=== PATIENT | male | born 1995 | race Two or more races ===

== ENCOUNTER 2018-07-06 07:34 | Emergency (ER) | payer SELFPAY ==
--- NOTE | 2018-07-06 07:38 | EDM.PDOC ---
ED HPI GENERAL MEDICAL PROBLEM - General Stated Complaint: COUGH, CHEST PAIN, HEADACHE, FEVER Time Seen by Provider: 07/06/18 07:37 Source of Information: Reports: Patient - History of Present Illness INITIAL COMMENTS - FREE TEXT/NARRATIVE: HISTORY AND PHYSICAL: History of present illness: [Patient presents with 2 days of substernal chest pain 5 out of 10 nonradiating also complains of headache no fever nausea vomiting chills sweats no shortness of breath or diaphoresis] Review of systems: As per history of present illness and below otherwise all systems reviewed and negative. Past medical history: As per history of present illness and as reviewed below otherwise noncontributory. Surgical history: As per history of present illness and as reviewed below otherwise noncontributory. Social history: No reported history of drug or alcohol abuse. Family history: As per history of present illness and as reviewed below otherwise noncontributory. Physical exam: HEENT: Atraumatic, normocephalic, pupils reactive, negative for conjunctival pallor or scleral icterus, mucous membranes moist, throat clear, neck supple, nontender, trachea midline. Lungs: Clear to auscultation, breath sounds equal bilaterally, chest nontender. Heart: S1S2, regular, negative for clicks, rubs, or JVD. Abdomen: Soft, nondistended, nontender. Negative for masses or hepatosplenomegaly. Negative for costovertebral tenderness. Pelvis: Stable nontender. Genitourinary: Deferred. Rectal: Deferred. Extremities: Atraumatic, negative for cords or calf pain. Neurovascular unremarkable. Neuro: Awake, alert, oriented. Cranial nerves II through XII unremarkable. Cerebellum unremarkable. Motor and sensory unremarkable throughout. Exam nonfocal. Diagnostics: [Influenza EKG Chest 1 view ]CBC CMP troponin lipase UA Therapeutics: [Normal saline Aspirin 324 mg chewable] Proton X 80 mg IV GI cocktail Lopressor 5 mg IV Nitroglycerin 0.4 sublingual 3 pain resolved with the sublingual nitroglycerin after third dose Impression: Acute coronary syndrome elevated troponin ] Definitive disposition and diagnosis as appropriate pending reevaluation and review of above. Mid-Sternal Chest Pain Score (Numeric/FACES): 5 - Related Data Allergies Allergy/AdvReac Type Severity Reaction Status Date / Time No Known Allergies Allergy Verified 07/06/18 07:48 Home Meds: Home Meds . [No Known Home Meds] 07/06/18 [History] ED ROS GENERAL - Review of Systems Review Of Systems: See Below ED EXAM, GENERAL - Physical Exam Exam: See Below Course - Vital Signs Last Recorded V/S: Last Vital Signs Temp 97.6 F 07/06/18 07:45 Pulse 97 07/06/18 09:49 Resp 13 07/06/18 09:35 BP 109/69 07/06/18 09:49 Pulse Ox 97 07/06/18 09:35 - Orders/Labs/Meds Orders: Active Orders 24 hr Category Date Time Status EKG Documentation Completion [RC] STAT Care 07/06/18 07:37 Active CKMB [CHEM] Stat Lab 07/06/18 08:00 Received CPK [CREATINE KINASE,CK] [CHEM] Stat Lab 07/06/18 08:00 Received INR,PT,PROTHROMBIN TIME [COAG] Stat Lab 07/06/18 08:00 Received Nitroglycerin [Nitrostat] Med 07/06/18 09:39 Active 0.4 mg SL Q5M PRN Medication Orders Nitroglycerin (Nitrostat) 0.4 mg SL Q5M PRN PRN Reason: Chest Pain Last Admin: 07/06/18 09:43 Dose: 0.4 mg Admin: 07/06/18 09:38 Dose: 0.4 mg Labs: Laboratory Tests 07/06/18 07/06/18 Range/Units 08:00 08:00 WBC 8.56 (4.0-11.0) K/uL RBC 5.32 (4.50-5.90) M/uL Hgb 15.8 (13.0-17.0) g/dL Hct 45.6 (38.0-50.0) % MCV 85.7 (80.0-98.0) fL MCH 29.7 (27.0-32.0) pg MCHC 34.6 (31.0-37.0) g/dL RDW Std Deviation 39.1 (28.0-62.0) fl RDW Coeff of Manuelito 13 (11.0-15.0) % Plt Count 161 (150-400) K/uL MPV 10.90 (7.40-12.00) fL Neut % (Auto) 69.1 (48.0-80.0) % Lymph % (Auto) 15.7 L (16.0-40.0) % Henderson % (Auto) 14.7 (0.0-15.0) % Eos % (Auto) 0.4 (0.0-7.0) % Baso % (Auto) 0.1 (0.0-1.5) % Neut # (Auto) 5.9 H (1.4-5.7) K/uL Lymph # (Auto) 1.3 (0.6-2.4) K/uL Henderson # (Auto) 1.3 H (0.0-0.8) K/uL Eos # (Auto) 0.0 (0.0-0.7) K/uL Baso # (Auto) 0.0 (0.0-0.1) K/uL Nucleated RBC % 0.0 /100WBC Nucleated RBCs # 0 K/uL Sodium 137 (136-148) mmol/L Potassium 3.2 L (3.5-5.1) mmol/L Chloride 101 (98-107) mmol/L Carbon Dioxide 27.3 (21.0-32.0) mmol/L BUN 14 (7.0-18.0) mg/dL Creatinine 0.9 (0.8-1.3) mg/dL Est Cr Clr Drug Dosing 117.16 mL/min Estimated GFR (MDRD) > 60.0 ml/min Glucose 121 H (74-106) mg/dL Calcium 9.1 (8.5-10.1) mg/dL Total Bilirubin 0.9 (0.2-1.0) mg/dL AST 62 H (15-37) IU/L ALT 32 (14-63) IU/L Alkaline Phosphatase 71 (46-116) U/L Troponin I 21.440 H* (0.000-0.056) ng/mL Total Protein 7.8 (6.4-8.2) g/dL Albumin 3.8 (3.4-5.0) g/dL Globulin 4.0 (2.6-4.0) g/dL Albumin/Globulin Ratio 0.9 (0.9-1.6) Lipase 100 (73-393) U/L Meds: Medications Generic Name Dose Route Start Last Admin Trade Name Freq PRN Reason Stop Dose Admin Nitroglycerin 0.4 mg 07/06/18 09:39 07/06/18 09:43 Nitrostat SL 0.4 mg Q5M PRN Administration Chest Pain Discontinued Medications Generic Name Dose Route Start Last Admin Trade Name Que PRN Reason Stop Dose Admin Aspirin 324 mg 07/06/18 07:51 07/06/18 08:04 Aspirin PO 07/06/18 07:52 324 mg ONETIME ONE Administration Al Hydroxide/Mg Hydroxide 15 0 ml 07/06/18 08:29 07/06/18 08:53 ml/ Metoclopramide HCl 5 mg/ PO 07/06/18 08:30 1 each Lidocaine HCl 5 ml ONETIME ONE Administration Enoxaparin Sodium 100 mg 07/06/18 09:31 07/06/18 09:37 Lovenox SUBCUT 07/06/18 09:32 100 mg ONETIME ONE Administration Heparin Sodium (Porcine) 4,000 units 07/06/18 09:49 Heparin Sodium IVPUSH 07/06/18 09:50 .BOLUS ONE Sodium Chloride 1,000 mls @ 999 mls/hr 07/06/18 07:51 07/06/18 08:04 Normal Saline IV 07/06/18 08:51 999 mls/hr STAT ONE Administration Metoprolol Tartrate 5 mg 07/06/18 09:41 07/06/18 09:49 Lopressor IVPUSH 07/06/18 09:42 5 mg NOW STA Administration Nitroglycerin Confirm 07/06/18 09:35 07/06/18 09:46 Nitrostat Administered 07/06/18 09:36 Not Given Dose 0.4 mg .ROUTE .STK-MED ONE Pantoprazole Sodium 80 mg 07/06/18 08:29 07/06/18 08:54 Protonix Iv IVPUSH 07/06/18 08:30 80 mg .BOLUS ONE Administration Departure - Departure Time of Disposition: 09:52 Disposition: DC/Tfer to Acute Hospital 02 Condition: Fair Clinical Impression: Acute coronary syndrome, Elevated troponin - Discharge Information Referrals: PCP,None [Primary Care Provider] - - My Orders Last 24 Hours: My Active Orders 07/06/18 07:37 EKG Documentation Completion [RC] STAT 07/06/18 08:00 CKMB [CHEM] Stat CPK [CREATINE KINASE,CK] [CHEM] Stat INR,PT,PROTHROMBIN TIME [COAG] Stat 07/06/18 09:39 Nitroglycerin [Nitrostat] 0.4 mg SL Q5M PRN - Assessment/Plan Last 24 Hours: My Active Orders 07/06/18 07:37 EKG Documentation Completion [RC] STAT 07/06/18 08:00 CKMB [CHEM] Stat CPK [CREATINE KINASE,CK] [CHEM] Stat INR,PT,PROTHROMBIN TIME [COAG] Stat 07/06/18 09:39 Nitroglycerin [Nitrostat] 0.4 mg SL Q5M PRN
[2018-07-06] MEDS ORDERED: Aspirin 81 MG Tab.Chew PO ONE (07:51)
[2018-07-06] MEDS ORDERED: Sodium Chloride 0.9% 1,000 ML IV ONE ×2 (07:51→09:53)
[2018-07-06] MEDS ORDERED: Alum Hydrox/Mag Hydrox/Simeth 15 ML, Metoclopramide 5 MG, Lidocaine 2% 5 ML PO ONE ×3 (08:29)
[2018-07-06] MEDS ORDERED: Pantoprazole 40 MG Vial IVPUSH ONE (08:29)
--- NOTE | 2018-07-06 08:46 | CR ---
EXAMINATION: Portable chest radiograph. HISTORY: Shortness of breath. FINDINGS: The trachea is midline. The cardiomediastinal silhouette is within normal limits. No pulmonary infiltrates, effusions or pneumothorax. Osseous structures appear unremarkable. IMPRESSION: No acute cardiopulmonary process.
[2018-07-06 08:52] LABS: CHLORIDE,CL 101 mmol/L (98-107); SODIUM,NA 137 mmol/L (136-148)
[2018-07-06] MEDS ORDERED: Enoxaparin 100 MG/1 ML Syringe SUBCUT ONE (09:31)
[2018-07-06] MEDS ORDERED: Nitroglycerin 0.4 MG Tab.SL ONE (09:35)
[2018-07-06] MEDS: Nitroglycerin 0.4 MG Tab.SL SL PRN ×3 (09:38→09:48)
[2018-07-06] MEDS ORDERED: Metoprolol Tartrate 5 MG/5 ML SDV IVPUSH STA (09:41)
[2018-07-06] MEDS ORDERED: Heparin Sodium 5,000 Units/ML Vial IVPUSH ONE (09:49)
[2018-07-06] MEDS ORDERED: Heparin Sod,Pork In 0.45% Nacl 25,000 UNIT/500 ML IV.SOLN IV ONE (09:52)
[2018-07-06] MEDS ORDERED: Heparin Sod,Pork In 0.45% Nacl 25,000 UNIT/500 ML IV.SOLN IV SCH (10:00)
== END 2018-07-06 10:30 ==
LOC: MW.ED 07:34
DX: I24.9 Acute ischemic heart disease, unspecified (principal); R79.89 Other specified abnormal findings of blood chemistry
CPT/HCPCS: 36415; 71045; 80053; 82550; 82553; 83690; 84484; 85025; 85610; 87804; 93005; 96361; 96365; 96375; 96376; 99285; A9270; C9113; J1644; J1650; J3490; J7040

== ENCOUNTER 2019-01-11 10:55 | Emergency (ER) | payer BC, OTHER ==
[2019-01-11] MEDS ORDERED: Diphtheria/Tetanus Toxoids,Adult (Td) 0.5 ML Syringe IM ONE (11:07)
[2019-01-11] MEDS ORDERED: ceFAZolin 1 GM in Premix Bag 1 BAG IV ONE (11:11)
[2019-01-11] MEDS ORDERED: Diphtheria,Pertussis(Acell),Tetanus Vaccine 0.5 ML Syringe IM ONE (11:13)
[2019-01-11] MEDS ORDERED: Ketorolac 60 MG/2 ML SDV IM ONE (11:15)
--- NOTE | 2019-01-11 11:19 | EDM.PDOC ---
ED HPI GENERAL MEDICAL PROBLEM - General Chief Complaint: Laceration Stated Complaint: LACERATION ON HAND Time Seen by Provider: 01/11/19 11:13 - History of Present Illness INITIAL COMMENTS - FREE TEXT/NARRATIVE: HISTORY AND PHYSICAL: History of present illness: []Patient is a 23-year-old male presenting today with multiple lacerations to left nondominant hand; patient was at work and had 2 metal plates compressing the left hand with pressure. Mentions hearing a "crunch" sound; believes he broke something. Denies using any [id number] medications prior to arrival to the ED. Patient rates the pain as 8 out of 10. Patient denies fever, chills, body aches come radiation of pain Review of systems: As per history of present illness and below otherwise all systems reviewed and negative. Past medical history: Previous history of "[place]" requiring transfer to [facility] Surgical history: As per history of present illness and as reviewed below otherwise noncontributory. Social history: No reported history of drug or alcohol abuse. Family history: As per history of present illness and as reviewed below otherwise noncontributory. Physical exam: HEENT: Atraumatic, normocephalic, pupils reactive, negative for conjunctival pallor or scleral icterus, mucous membranes moist, throat clear, neck supple, nontender, trachea midline. Lungs: Clear to auscultation, breath sounds equal bilaterally, chest nontender. Heart: S1S2, regular, negative for clicks, rubs, or JVD. Abdomen: Soft, nondistended, nontender. Negative for masses or hepatosplenomegaly. Negative for costovertebral tenderness. Pelvis: Stable nontender. Genitourinary: Deferred. Rectal: Deferred. Extremities: multiple lacerations of left non-dominant hand: Large curvilinear (L-shaped) laceration w/ exposed adipose tissue over left palm ; extending from base of 4th digit to lateral aspect of hand : 7 cm in length Laceration over palmar surface of left 3rd digit ; horizontal distribution at lateral aspect near pip joint : 2.5 cm Laceration over 4th digit : distal to PIP at 30 deg angle; 4cm laceration at 5th digit : 5 cm ; similar angle of 4th digit laceration. Sensation and ROM intact. pt. can use thumb to tough other digits , mild discomfort w/ making a fist but can still maintain ROM Left wrist: full ROM, sensation intact. Capillary refill of digits intact before; after sutures placed. Range of motion intact. Sensation intact. Neuro: Awake, alert, oriented. Cranial nerves II through XII unremarkable. Motor and sensory unremarkable throughout. Exam nonfocal. Diagnostics: []Left hand x-ray : no acute fx/dislocation appreciated Therapeutics: []Tordol 60 mg IV Impression: []Left hand lacerations multiple Left hand contusion Plan: []3-0 sutures placed in palm: x11. Margins approximated. 5 cc Lidocaine 1% used at margins. 4-0 sutures placed digits...6 placed in 5th digit..6 placed in 4th digit ...3 placed in 3rd digiti. repeat neuro-vascular exam intact. sensation intact 500 cc NS irrgation performed w/ betadyne applied prior to suture placement pt. agreed to procedure; risks and benefits explained. Definitive disposition and diagnosis as appropriate pending reevaluation and review of above. left hand Pain Score (Numeric/FACES): 8 - Related Data Allergies Allergy/AdvReac Type Severity Reaction Status Date / Time No Known Allergies Allergy Verified 01/11/19 10:59 Home Meds: Home Meds Cephalexin [Keflex] 500 mg PO BID 5 Days #10 capsule 01/11/19 [Rx] Past Medical History - Past Health History Medical/Surgical History: Denies Medical/Surgical History HEENT History: Reports: None Cardiovascular History: Reports: [place] Respiratory History: Reports: None Gastrointestinal History: Reports: None Genitourinary History: Reports: None Musculoskeletal History: Reports: None Neurological History: Reports: None Psychiatric History: Reports: None Endocrine/Metabolic History: Reports: None Hematologic History: Reports: None Immunologic History: Reports: None Oncologic (Cancer) History: Reports: None Dermatologic History: Reports: None - Past Surgical History Head Surgeries/Procedures: Reports: None HEENT Surgical History: Reports: None Cardiovascular Surgical History: Reports: None Respiratory Surgical History: Reports: None GI Surgical History: Reports: None Male Surgical History: Reports: None Endocrine Surgical History: Reports: None Neurological Surgical History: Reports: None Musculoskeletal Surgical History: Reports: None Oncologic Surgical History: Reports: None Dermatological Surgical History: Reports: None Social & Family History - Family History Family Medical History: Noncontributory - Tobacco Use Smoking Status *Q: Never Smoker Second Hand Smoke Exposure: No - Caffeine Use Caffeine Use: Reports: Coffee - Recreational Drug Use Recreational Drug Use: No Review of Systems - Review of Systems Review Of Systems: See Below (see dictation) ED EXAM, GENERAL - Physical Exam Exam: See Below (see dictation) Course - Vital Signs Text/Narrative:: patient tolerated procedure. 1 gm ancef given to patient in ED Keflex 500 mg BID x 5 days prescription sent. Advised to follow-up w/ Dr. Urban of [facility]. hand surgeon. Last Recorded V/S: Last Vital Signs Temp 97.2 F 01/11/19 11:00 Pulse 63 01/11/19 14:34 Resp 18 01/11/19 14:34 BP 112/62 01/11/19 14:34 Pulse Ox 98 01/11/19 14:34 - Orders/Labs/Meds Orders: Active Orders 24 hr Category Date Time Status Vaccines to be Administered [RC] PER UNIT ROUTINE Care 01/11/19 11:08 Active Vaccines to be Administered [RC] PER UNIT ROUTINE Care 01/11/19 11:13 Active Meds: Medications Discontinued Medications Generic Name Dose Route Start Last Admin Trade Name Avelq PRN Reason Stop Dose Admin Bacitracin 3 dose 01/11/19 13:34 01/11/19 14:32 Bacitracin Oint 1 Gm TOP 01/11/19 13:35 3 dose ONETIME ONE Administration Diphtheria/Tetanus/Acell Pertussis 0.5 ml 01/11/19 11:13 01/11/19 11:38 Adacel IM 01/11/19 11:14 0.5 ml .ONCE ONE Administration Cefazolin Sodium/Dextrose 1 gm 50 mls @ 100 mls/hr 01/11/19 11:11 01/11/19 11 :38 / Premix IV 01/11/19 11:40 100 mls/hr ONETIME ONE Administration Ketorolac Tromethamine 60 mg 01/11/19 11:15 01/11/19 11:25 Toradol IM 01/11/19 11:16 Not Given ONETIME ONE Ketorolac Tromethamine 30 mg 01/11/19 11:25 01/11/19 11:37 Toradol IVPUSH 01/11/19 11:26 30 mg ONETIME ONE Administration Lidocaine HCl 10 ml 01/11/19 11:32 01/11/19 11:38 Xylocaine-Mpf 1% INJECT 01/11/19 11:33 10 ml ONETIME ONE Administration Lidocaine HCl 5 ml 01/11/19 13:36 01/11/19 14:33 Xylocaine-Mpf 1% INJECT 01/11/19 13:37 5 ml ONETIME ONE Administration Tetanus/Diphtheria Toxoids 0.5 ml 01/11/19 11:07 01/11/19 11:20 Tenivac IM 01/11/19 11:08 Not Given .ONCE ONE Departure - Departure Time of Disposition: 01:00 Disposition: Home, Self-Care 01 Clinical Impression: Laceration of hand - Discharge Information Prescriptions: Cephalexin [Keflex] 500 mg PO BID 5 Days #10 capsule Instructions: Laceration Care, Adult, [id number] Referrals: PCP,None [Primary Care Provider] - 1 Week (Dr Urban of [facility]. Hand surgeon ) Forms: ED Department Discharge Additional Instructions: The following information is given to patients seen in the emergency department who are being discharged to home. This information is to outline your options for follow-up care. We provide all patients seen in our emergency department with a follow-up referral. The need for follow-up, as well as the timing and circumstances, are variable depending upon the specifics of your emergency department visit. If you don't have a primary care physician on staff, we will provide you with a referral. We always advise you to contact your personal physician following an emergency department visit to inform them of the circumstance of the visit and for follow-up with them and/or the need for any referrals to a consulting specialist. The emergency department will also refer you to a specialist when appropriate. This referral assures that you have the opportunity for follow-up care with a specialist. All of these measure are taken in an effort to provide you with optimal care, which includes your follow-up. Under all circumstances we always encourage you to contact your private physician who remains a resource for coordinating your care. When calling for follow-up care, please make the office aware that this follow-up is from your recent emergency room visit. If for any reason you are refused follow-up, please contact the [facility] Emergency Department at and asked to speak to the emergency department charge nurse. - My Orders Last 24 Hours: My Active Orders 01/11/19 11:08 Vaccines to be Administered [RC] PER UNIT ROUTINE 01/11/19 11:13 Vaccines to be Administered [RC] PER UNIT ROUTINE - Assessment/Plan Last 24 Hours: My Active Orders 01/11/19 11:08 Vaccines to be Administered [RC] PER UNIT ROUTINE 01/11/19 11:13 Vaccines to be Administered [RC] PER UNIT ROUTINE Assessment:: Left hand laceration See dictation
[2019-01-11] MEDS ORDERED: Ketorolac 30 MG/ML SDV IVPUSH ONE (11:25)
--- NOTE | 2019-01-11 11:53 | CR ---
Left hand: Three views left hand were obtained. Comparison: No prior hand exam. Joint spaces are preserved. Soft tissue air noted within the fifth digit. Several small radiopacities are seen within the distal fifth finger as well as within the fourth finger at the PIP joint level. No acute fracture or other bony abnormality is seen. Impression: 1. Possible small foreign body(s) within the soft tissues of the distal fifth finger as well as within the fourth finger at the level of the PIP joint. 2. Soft tissue air is seen within the fifth digit. 3. No acute bony abnormality is appreciated. Diagnostic code #3 [id number]
[2019-01-11] MEDS ORDERED: Bacitracin Oint 1 GM U/D Packet TOP ONE (13:34)
== END 2019-01-11 14:34 | disposition home or self-care (01) ==
LOC: MW.ED 10:55
DX: S61.213A Laceration without foreign body of left middle finger without damage to nail, initial encounter (principal); S61.215A Laceration without foreign body of left ring finger without damage to nail, initial encounter; S61.217A Laceration without foreign body of left little finger without damage to nail, initial encounter; I25.2 Old myocardial infarction; Z23 Encounter for immunization; W22.8XXA Striking against or struck by other objects, initial encounter; Y99.0 Civilian activity done for income or pay
CPT/HCPCS: 12005; 73130; 90471; 90715; 96365; 96375; 99283; J0690; J1885; J2001

== ENCOUNTER 2019-01-20 15:42 | Emergency (ER) | payer SELFPAY | END 2019-01-20 16:38 | disposition left against medical advice (07) | LOC: MW.ED 15:42 | DX: S61.412D Laceration without foreign body of left hand, subsequent encounter (principal); X58.XXXD Exposure to other specified factors, subsequent encounter ==